=== PATIENT | male | born 1970 | race Caucasian/White ===

== ENCOUNTER 2023-06-15 11:31 | Emergency (ER) | payer MEDICAID, SELFPAY ==
--- NOTE | ~2023-06-15 | US_ITS ---
EXAMINATION: US SCROTUM CLINICAL INFORMATION: Left testicular pain and swelling. COMPARISON: Scrotal ultrasound 12/08/2015 TECHNIQUE: A sonogram of the scrotum was performed assessing james-scale appearance and color Doppler flow. Spectral Doppler analysis of the arterial and venous flow were performed in the testes bilaterally. FINDINGS: RIGHT: Right testicle measures 3.8 x 2.4 x 2.9 cm, volume 14 mL. No focal testicular parenchymal lesions are visualized. Spectral Doppler analysis of the arterial and venous flow is normal in the right testis. Right epididymal head is remarkable for a 4 mm epididymal head cyst. No right hydrocele or varicocele is seen. Right epididymal Doppler flow is normal. LEFT: Left testicle measures 4.0 x 2.2 x 2.9 cm, volume 14 mL. No focal testicular parenchymal lesions are visualized. Spectral Doppler analysis of the arterial and venous flow is normal in the left testis. Left epididymal head is remarkable for a 5 mm epididymal head cyst. Large complex left hydrocele. No left varicocele is seen. Left epididymal Doppler flow is increased with enlargement of the epididymis. Incidentally noted left appendix testis. US/US scrotum IMPRESSION: Left epididymitis with a large complex left hydrocele.
--- NOTE | ~2023-06-15 | US_ITS ---
EXAMINATION: US SCROTUM CLINICAL INFORMATION: Left testicular pain and swelling. COMPARISON: Scrotal ultrasound 12/08/2015 TECHNIQUE: A sonogram of the scrotum was performed assessing james-scale appearance and color Doppler flow. Spectral Doppler analysis of the arterial and venous flow were performed in the testes bilaterally. FINDINGS: RIGHT: Right testicle measures 3.8 x 2.4 x 2.9 cm, volume 14 mL. No focal testicular parenchymal lesions are visualized. Spectral Doppler analysis of the arterial and venous flow is normal in the right testis. Right epididymal head is remarkable for a 4 mm epididymal head cyst. No right hydrocele or varicocele is seen. Right epididymal Doppler flow is normal. LEFT: Left testicle measures 4.0 x 2.2 x 2.9 cm, volume 14 mL. No focal testicular parenchymal lesions are visualized. Spectral Doppler analysis of the arterial and venous flow is normal in the left testis. Left epididymal head is remarkable for a 5 mm epididymal head cyst. Large complex left hydrocele. No left varicocele is seen. Left epididymal Doppler flow is increased with enlargement of the epididymis. Incidentally noted left appendix testis. US/US scrotum doppler IMPRESSION: Left epididymitis with a large complex left hydrocele.
[2023-06-15 11:42] VITALS: BP 151/92; PULSE 98; RESP 16; TEMP 36.7; O2SAT 98; BMI 19.9
--- NOTE | 2023-06-15 11:45 | ED.GENADULT ---
HPI - General Adult General Chief complaint: Urogenital-Male Stated complaint: Swollen testicles Time Seen by Provider: 06/15/23 11:51 Source: patient Mode of arrival: ambulatory Limitations: no limitations History of Present Illness HPI narrative: patient is a 53-year-old male who presents emergency department for evaluation of left testicular pain and swelling atraumatic in nature over the past 7 days. He reports that he has presented to [facility] twice over the past week for evaluation, but has left without treatment from the waiting room due to wait times. He denies concern for sexually transmitted infection. Denies any penile discharge. Denies fevers, chills, abdominal/groin pain, back pain, recent straining or heavy lifting. Related Data Previous Rx's ?Medication ?Instructions ?Recorded levofloxacin 500 mg tablet 500 mg PO DAILY #10 tabs 06/15/23 Allergies Allergy/AdvReac Type Severity Reaction Status Date / Time No Known Allergies Allergy Verified 06/15/23 11:45 [No Known Allergies*] Review of Systems Review of Systems: Yes all other systems are reviewed and are negative [facility]LY [facility] Past Medical History Attestation statement: The following information was validated with the patient. Source: old records reviewed Social History Social History Advance Directives: No Advance Directives Information Provided: Yes Do you have a plan to hurt others: No Plan Physical Exam ED Vital Signs: Vital Signs - 24 hr 06/15/23 11:42 06/15/23 15:02 06/15/23 15:41 Temperature 98.1 F 98.2 F Pulse Rate 98 62 62 Respiratory Rate 16 16 16 Blood Pressure 151/92 H 156/101 H 156/101 H Pulse Oximetry 98 98 98 Oxygen Delivery Method Room Air Room Air Room Air BMI result Body Mass Index 19.9 Appearance: Alert.?Oriented to person, place and time. No acute distress.?Normal affect. Eyes: Pupils equal, round and reactive to light.? ENT: Pharynx normal.?? Neck: Normal inspection.? Neck supple.?? CVS: Heart sounds normal. Normal heart rate and rhythm.? Pulses normal.?? Respiratory: No respiratory distress.? Lung sounds clear to auscultation bilaterally?? Abdomen: Soft and non-tender. Normoactive bowel sounds. Genital: performed with application systems administrator, ED administrative support technician Mark - scrotal asymmetry, left lower than right, left scrotal swelling, external erythema, no rashes or lesions. Positive phren sign, absence of cremasteric reflex on the left Skin: Skin warm and dry.? Normal skin color.? Extremities: No lower extremity edema.? Neuro: Moves all extremities spontaneously. Sensation intact bilaterally. Ambulates with normal steady gait. Course Course Course Narrative: RME: 53-year-old male presents to ED for left testicular pain and swelling for the past 7 days without any trauma. Patient denies any history of STDs. Patient denies any recent heavy lifting. Medications Administered Discontinued Medications Generic Name Dose Route Start Last Admin Trade Name Freq PRN Reason Stop Dose Admin Ketorolac Tromethamine 30 mg 06/15/23 12:17 06/15/23 12:27 Ketorolac Tromethamine 30 Mg/Ml Vial IM 06/15/23 12:18 30 mg ONCE ONE Administration Medical Decision Making Medical Decision Making [facility] Narrative: patient is a 53-year-old male presents emergency department for evaluation of left testicular pain and swelling for 1 week as per HPI, atraumatic in nature. Plan; urinalysis, screening for chlamydia/ gonorrhea, ultrasound, pain management with Toradol. STI testing negative. Urinalysis negative. Ultrasound reveals no evidence of testicular torsion he does however have epididymitis on the left with a complex hydrocele, discussed supportive undergarments, treatment with course of antibiotics and outpatient follow-up with urology. Reviewed worrisome signs symptoms that would warrant re-evaluation in the emergency department. All questions answered. Stable for discharge. Differential Diagnosis Differential Diagnoses: The differential diagnosis associated with the presentation includes ( hydrocele, varicocele, testicular torsion, orchitis, epididymitis) Admission/Observation Consideration of admission/observation: Escalation of care including admission/observation considered Lab Data MDM Lab Attestation statement: I reviewed the patient's lab results. urinalysis is without compelling evidence of urinary tract infection. Chlamydia and gonorrhea testing is negative. Labs: Lab Results 06/15/23 Range/Units 12:15 Urine Color Dark Yellow Urine Appearance Clear Urine pH 6.0 (5.0-9.0) Ur Specific [place] >= 1.030 H (1.005-1.025) Urine Protein 30 (1+) H (Neg-Trace) mg/dL Urine Glucose (UA) Negative (Negative) mg/dL Urine Ketones Trace (Negative) mg/dL Urine Blood Negative (Negative) Urine Nitrite Negative (Negative) Ur Leukocyte Esterase Moderate (2+) H (Negative) Urine RBC 0-2 (0-2) /HPF Urine WBC 21-50 H (0-5) /HPF Ur Squamous Epith Cells 0-2 (0-2) /HPF Urine Bacteria None Seen (None Seen) Hyaline Casts 0-2 (0-2) /LPF Chlam trachomat DNA PCR NOT DETECTED (Not Detect.) N.gonorrhoeae DNA (PCR) NOT DETECTED (Not Detect.) Radiology Impression Discussion of test interpretation with radiology: I have reviewed the radiologist's reading. Radiologist Impression: US/US scrotum doppler IMPRESSION: Left epididymitis with a large complex left hydrocele. External Record Review External record reviewed: Outpatient record Prescription Management I considered prescription management with: Pain Medication ( Acetaminophen/ibuprofen) and Antibiotic Discharge Plan Discharge Clinical Impression: Epididymitis, Acute hydrocele Patient Disposition: Home, Self-Care Instructions: Epididymitis (ED), Hydrocele (ED) Additional Instructions: consider wearing tight supportive boxer briefs or purchasing a jock strap from the pharmacy to provide support to the scrotum while this is healing. complete the entire course of antibiotics as prescribed , the name of this antibiotic is Levofloxacin This antibiotic does come with an increased risk of injury to tendons, which can occur even up to a few months after taking this medication. If you suddenly developed joint pain, particularly pain to the back of the ankle, difficulty walking, or any concerning symptoms then you should seek evaluation. Contact the urologist to arrange for follow-up visit. Return back to emergency department any new or worsening symptoms or concerns. Prescriptions: New levofloxacin 500 mg tablet 500 mg PO DAILY Qty: 10 0RF Referrals: Julee Chance MD [Physician] - Interventions: ED Discharge Assessment Last Done: 06/15/23 15:41 Discharge Date/Time: 06/15/23 15:42 Print Language: Czech
[2023-06-15 12:22] LABS: Appearance Urine Clear; Color Urine Dark Yellow; Glucose Urine UA Negative (Negative); Leukocyte Esterase Urine Moderate (2+) (Negative); Nitrite Urine Negative (Negative); Specific Gravity - Urine >= 1.030 (1.005-1.025); UMIC TRIGGER UACC YES; Urine Blood Negative (Negative); Urine Ketones Trace mg/dL (Negative); Urine Protein 30 (1+) mg/dL (Neg-Trace)
[2023-06-15 12:26] LABS: Bacteria Urine None Seen (None Seen); Hyaline Casts Urine 0-2 /LPF (0-2); RBC Urine 0-2 /HPF (0-2); Squamous Epithelial Cell Urine 0-2 /HPF (0-2); UACC Culture Trigger YES; WBC Urine 21-50 /HPF (0-5)
[2023-06-15] MEDS: Ketorolac Tromethamine 30 MG/ML VIAL IM (12:27)
[2023-06-15 14:05] LABS: CT PCR NOT DETECTED (Not Detect.); NG PCR NOT DETECTED (Not Detect.)
[2023-06-15 15:02] VITALS: BP 156/101; PULSE 62; RESP 16; O2SAT 98
[2023-06-15 15:41] VITALS: BP 156/101; PULSE 62; RESP 16; TEMP 36.8; O2SAT 98
== END 2023-06-15 15:42 | disposition home or self-care (01) ==
PROVIDERS: Physician Assistant; Emergency Provider Student in an Organized Health Care Education/Training Program
DX: N45.1 Epididymitis (principal); N43.3 Hydrocele, unspecified
CPT/HCPCS: 0353U; 76870; 81001; 87086; 93975; 96372; 99284; J1885

== ENCOUNTER 2023-12-23 14:49 | Emergency (ER) | payer MEDICAID, SELFPAY ==
[2023-12-23 14:58] VITALS: BP 142/102; PULSE 94; RESP 18; TEMP 36.8; O2SAT 97; BMI 21.9
--- NOTE | 2023-12-23 15:00 | ED.GENADULT ---
HPI - General Adult General Chief complaint: General Medical Stated complaint: Covid + Time Seen by Provider: 12/23/23 15:03 Source: patient Mode of arrival: ambulatory Limitations: no limitations History of Present Illness ED Provider: fransisco [facility] narrative: Patient is a 53- year-old male recently started on amlodipine at [facility] ED, ran out of his amlodipine 6-7 days ago because he does not have a PCP presenting to the ED with report of elevated blood pressure readings at home. He is also Covid+, reports chills. Reports mild headache. Denies chest pain, dyspnea, palpitations. MD complaint: high bp Onset (ago): day(s) Treatments prior to arrival: none Related Data Previous Rx's ?Medication ?Instructions ?Recorded levofloxacin 500 mg tablet 500 mg PO DAILY #10 tabs 06/15/23 amlodipine 5 mg tablet 5 mg PO DAILY #30 tabs 12/23/23 Allergies Allergy/AdvReac Type Severity Reaction Status Date / Time No Known Allergies Allergy Verified 12/23/23 15:00 [No Known Allergies*] Review of Systems Review of Systems: As per HPI. Yes all other systems are reviewed and are negative Constitutional: Constitutional: Reports as per HPI Physical Exam ED Vital Signs: Vital Signs - 24 hr 12/23/23 14:58 Temperature 98.2 F Pulse Rate 94 Respiratory Rate 18 Blood Pressure 142/102 H Pulse Oximetry 97 Oxygen Delivery Method Room Air BMI result Body Mass Index 21.9 Vital signs have been reviewed and appear to be correct. Blood pressure elevated. Heart rate normal. Respiratory rate normal. Temperature normal. Oxygen saturation normal. Const General: cooperative, healthy appearing and no acute distress Orientation/consciousness: oriented to person, oriented to place, oriented to time and patient oriented x3 Limitations: no limitations [facility] Head: Yes normocephalic and Yes atraumatic Ears: external ears normal General nose exam: Normal external nose present Face and sinus: Yes face symmetric Mouth: oropharynx normal and moist mucous membranes Throat: Yes uvula midline Eyes Pupils: Equal, round and reactive pupils present Neck Neck: Yes normal visual inspection and Yes supple Resp Effort & Inspection: normal respiratory effort and able to speak in complete sentences Auscultation: clear to auscultation bilaterally Cardio Rate: regular rate Rhythm: regular rhythm Heart sounds: S1 normal heart sound present and S2 normal heart sound present GI Palpation (GI): Soft to palpation and nontender Auscultation: normoactive bowel sounds General: Yes no CVA tenderness Back/Spine/Pelvis Back: no CVA tenderness Skin General skin exam: elasticity normal and turgor normal Neuro General: oriented to person, oriented to place, oriented to time, patient oriented x3, moves all extremities, no focal motor deficits and CN's II-XI intact bilaterally Cranial nerves: Yes Equal, round and reactive pupils present Cognition (Neuro): normal cognition Extrem General: Yes full ROM, Yes no pedal edema and Yes no calf tenderness Psych Mental Status: mental status grossly normal Affect: normal affect Thought process: Normal thought process present Medical Decision Making Medical Decision Making [facility] Narrative: Patient is a 53- year-old male recently started on amlodipine at [facility], ran out of his amlodipine 6-7 days ago because he does not have a PCP presenting to the ED with report of elevated blood pressure readings at home. On exam patient is awake, A+Ox3, VS WNL, afebrile, normal neurological exam without focal deficits, physical exam findings as above. Given reported symptoms and physical exam findings, initial differential includes uncontrolled HTN, Covid. EKG shows normal sinus rhythm. Will send 30 day refill of amlodipine until patient is able to follow up with his PCP. Discussed with patient that Covid symptoms will slowly resolve on their own. Return precautions discussed. Patient verbalized understanding of and agreement with plan. Differential Diagnosis Differential Diagnoses: The differential diagnosis associated with the presentation includes as per mdm Independent Interpretation I performed an independent interpretation of an: EKG (normal sinus rhythm, rate 63bpm, normal TN interval and QTc) External Record Review External record reviewed: Inpatient record, Office record and Outpatient record Prescription Management I considered prescription management with: Other Discharge Plan Discharge Clinical Impression: Hypertension Patient Disposition: Home, Self-Care Instructions: How to Take a Blood Pressure (ED), Hypertension (ED) Additional Instructions: You were evaluated in the emergency department today for high blood pressure after running out of your blood pressure medication at home. A refill of this medication is being sent to the pharmacy until you are able to follow-up with your primary care provider. If you are going to run out of your blood pressure medication in the future, call oyur PCP or return to the ED before you run completely out. Keep your appointment with your PCP on 01/22. Return to the emergency department if you develop severe headache, changes in vision, chest pain or shortness of breath or any other concerning symptoms. Prescriptions: New amlodipine 5 mg tablet 5 mg PO DAILY Qty: 30 0RF No Action levofloxacin 500 mg tablet 500 mg PO DAILY Qty: 10 0RF Print Language: South African
--- NOTE | 2023-12-23 15:03 | ECG_ITS ---
Test Reason : chest pain Blood Pressure : / mmHG Vent. Rate : 063 BPM Atrial Rate : 063 BPM P-R Int : 162 ms QRS Dur : 090 ms QT Int : 406 ms P-R-T Axes : 069 084 079 degrees QTc Int : 415 ms Normal sinus rhythm Minimal voltage criteria for LVH, may be normal variant ( [place] product ) Borderline ECG No previous ECGs available Referred By: Ileana Dennis Electronically Signed By:AMY SMALLWOOD MD
[2023-12-23 16:58] VITALS: BP 135/95; PULSE 71; RESP 18; TEMP 36.8; O2SAT 98
== END 2023-12-23 17:15 | disposition home or self-care (01) ==
LOC: HO.ED 17:10
PROVIDERS: Emergency Provider Emergency Medicine
DX: U07.1 COVID-19 (principal); R07.89 Other chest pain; R51.9 Headache, unspecified; I10 Essential (primary) hypertension; Z79.899 Other long term (current) drug therapy
CPT/HCPCS: 93005; 99283

== ENCOUNTER → 2023-12-23 15:03 | Outpatient (BNV) | payer MEDICAID, SELFPAY | PROVIDERS: Emergency Provider Emergency Medicine; Visit Provider Internal Medicine Cardiovascular Disease | DX: R07.9 Chest pain, unspecified (principal) | CPT/HCPCS: 93010 ==

== ENCOUNTER 2024-01-27 13:30 | Emergency (ER) | payer MEDICAID, SELFPAY ==
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
[2024-01-27 14:21] VITALS: BP 138/80; PULSE 66; RESP 20; TEMP 36.5; O2SAT 99; BMI 25.1
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
[2024-01-27 16:29] VITALS: BP 137/78; PULSE 61; RESP 16; TEMP 36.3; O2SAT 97
[2024-01-27 17:12] VITALS: BP 137/78; PULSE 61; RESP 16; TEMP 36.3; O2SAT 97
== END 2024-01-27 17:16 | disposition home or self-care (01) ==
PROVIDERS: Emergency Provider Emergency Medicine
DX: S09.90XA Unspecified injury of head, initial encounter (principal); V48.0XXA Car driver injured in noncollision transport accident in nontraffic accident, initial encounter; Y93.9 Activity, unspecified; Y92.410 Unspecified street and highway as the place of occurrence of the external cause; Y99.9 Unspecified external cause status; M54.2 Cervicalgia; R51.9 Headache, unspecified; R11.0 Nausea
CPT/HCPCS: 70450; 72125; 99283; 99284

== ENCOUNTER → 2024-01-27 14:24 | Outpatient (BNV) | payer MEDICAID, SELFPAY | PROVIDERS: Emergency Provider Emergency Medicine; Visit Provider Radiology Diagnostic Radiology | DX: R51.9 Headache, unspecified (principal); M54.2 Cervicalgia | CPT/HCPCS: 70450; 72125 ==

== ENCOUNTER → 2024-02-23 15:52 | Outpatient (BNV) | payer MEDICAID, SELFPAY | PROVIDERS: Visit Provider Radiology Diagnostic Radiology | DX: M54.9 Dorsalgia, unspecified (principal) | CPT/HCPCS: 72100 ==